=== PATIENT | female | born 1945 ===

== ENCOUNTER 2017-10-31 06:22 | Day surgery (SDC) | payer OTHER ==
[~2017-10-31] VITALS: Ht 162.6 cm; Wt 51.2 kg
[2017-10-31] MEDS ORDERED: TOPI50 PO (06:58)
== END 2017-10-31 08:45 | disposition home or self-care (01) ==
LOC: ORSCSDS 06:22
PROVIDERS: Ophthalmology
PROC: 08RK3JZ Replacement of Left Lens with Synthetic Substitute, Percutaneous Approach (ICD-10-PCS; principal; 2017-10-31 08:00)
DX: H25.12 Age-related nuclear cataract, left eye (principal)
CPT/HCPCS: J2250; J3010; J3301; J7040; V2632